=== PATIENT | male | born 1970 | race Caucasian/White ===

== ENCOUNTER 2018-12-12 11:49 | Day surgery (SDC) | payer OTHER ==
[2018-12-12] MEDS ORDERED: DIAZEPAM 5 MG TAB PO ONE (11:54)
[2018-12-12] MEDS ORDERED: diphenhydrAMINE 25 MG CAP PO ONE ×2 (11:54→12:13)
[2018-12-12] MEDS ORDERED: FAMOTIDINE 20 MG TAB PO ONE (11:54)
[2018-12-12] MEDS ORDERED: ASPIRIN EC 325 MG TAB PO ONE ×2 (11:54→12:13)
[2018-12-12] MEDS ORDERED: NS 1,000 ML IV ONE (11:54)
[2018-12-12] MEDS ORDERED: FAMOTIDINE 20 MG TAB ONE (12:13)
[2018-12-12] MEDS ORDERED: DIAZEPAM 5 MG TAB ONE (12:13)
[2018-12-12 12:34] LABS: PLATELET COUNT 209 10^3/uL (150-400)
[2018-12-12] MEDS ORDERED: fentaNYL 100 MCG/2 ML INJ ONE ×2 (12:44→13:19)
[2018-12-12 12:45] LABS: INR 1.02 (0.83-1.16)
[2018-12-12] MEDS ORDERED: HEPARIN 10,000 UNIT/10 ML MDV (1,000 UNIT/ML) ONE (12:45)
[2018-12-12] MEDS ORDERED: VERAPAMIL 5 MG/2 ML VIAL ONE (12:45)
[2018-12-12] MEDS ORDERED: MIDAZOLAM 2 MG/2 ML VIAL ONE ×2 (12:45→13:19)
[2018-12-12] MEDS ORDERED: LIDOCAINE 1% 5 ML SDV ONE (12:46)
[2018-12-12] MEDS ORDERED: IOPAMIDOL (ISOVUE 370) 100 ML BTL IV ONE (12:46)
--- NOTE | 2018-12-12 12:47 | PDPROPOC ---
Sedation Plan of Care Sedation Plan of Care: vital signs stable, mental status noted, patient educated of risks, benefits, alternatives, patient can tolerate sedation ASA Classification: ASA 1 Planned drugs: fentanyl, midazolam Mallampati Score: Class 1 Mallampati Reference Image: Patient passed 3-3-2 rule?: Yes
--- NOTE | 2018-12-12 12:47 | PDHPUP ---
History & Physical Update H&P update statement: This history and physical update is based on an assessment of the patient which was completed after admission or registration (within 24 hours), but prior to the surgery/procedure. H&P update: H&P reviewed & patient examined, no change in patient's condition since H&P completed
--- NOTE | 2018-12-12 13:38 | PDDXCAT ---
Diagnostic Cath Note - . Date: 12/12/18 Sink Cutter: Terrell Indication: CCC Class III and IV angina on medical treatment High-risk criteria on non-invasive testing: stress-induced moderate-size multiple perfusion defects - Procedure Access: right groin Procedure: left heart catheterization, coronary angiography, left ventriculogram - Materials Left Heart Cath size: 5F Left Heart Cath materials: pigtail, other (Galien 4) - Findings-Left Heart Catheterization LM: Normal LAD: Normal LCX: Dominant: Normal RCA: Normal EDP: 13 mm of mercury LVEF: 60 Wall motion: Normal Complications: None Estimated blood loss: <50ml Closure method: TR Band Assessment: Angiographically normal coronary arteries. Normal LV systolic function
--- NOTE | 2018-12-19 10:55 | CPEKG ---
Test Reason : OPEN Blood Pressure : / mmHG Vent. Rate : 065 BPM Atrial Rate : 063 BPM P-R Int : 156 ms QRS Dur : 118 ms QT Int : 417 ms P-R-T Axes : 045 -13 014 degrees QTc Int : 434 ms Sinus rhythm Nonspecific intraventricular conduction delay inferior Q waves of borderline significance, consider old inferior CA. Confirmed by Madan Brink ([id number]) on 12/19/2018 10:55:32 AM Referred By: BRENT COVARRUBIAS Confirmed By:Madan Brink
== END 2018-12-12 17:01 | disposition home or self-care (01) ==
LOC: FCATH 11:49
PROVIDERS: ATTEND Internal Medicine Interventional Cardiology
DX: I20.9 Angina pectoris, unspecified (principal); E78.5 Hyperlipidemia, unspecified; Z82.49 Family history of ischemic heart disease and other diseases of the circulatory system; I10 Essential (primary) hypertension; E03.9 Hypothyroidism, unspecified
CPT/HCPCS: 93458; C1769; J1644; J2250; J3010; Q9967